=== PATIENT | male | born 1945 | race Caucasian/White ===

== ENCOUNTER 2020-08-31 16:21 | Emergency (ER) | payer OTHER, MEDICARE ==
[~2020-08-31] VITALS: Ht 180.3 cm; Wt 75.9 kg
[~2020-08-31 16:21] MED LIST: ASPI-611 PO; CYAN500T71 PO; DULO20CA50 PO; EMPA10TA PO; FOLI0.4T6 PO; GABA600T13 PO; INSU100V12 SQ; INSU100V13 SQ; LISI-790 PO; SIMV10TA2 PO
[2020-08-31] MEDS ORDERED: normal saline 1000ML IV soln IVB ONE (16:40)
[2020-08-31 17:07] LABS: BASOPHILS # (AUTO) 0.1 X10'3 (0-0.2); BASOPHILS % (AUTO) 0.8 % (0-1); EOSINOPHILS # (AUTO) 0.1 X10'3 (0-0.9); EOSINOPHILS % (AUTO) 1.1 % (0-6); HEMATOCRIT 45.3 % (42.0-52.0); HEMOGLOBIN 15.7 g/dl (14.0-17.9); LYMPHOCYTES # (AUTO) 1.1 X10'3 (1.1-4.8); LYMPHOCYTES % (AUTO) 13.1 % (21-51); MEAN CORPUSCULAR HEMOGLOBIN 33.3 PG (27.0-31.0); MEAN CORPUSCULAR HGB CONC 34.7 g/dL (33.0-36.5); MEAN PLATELET VOLUME 8.1 FL (7.4-10.4); MONOCYTES # (AUTO) 0.6 X10'3 (0-0.9); MONOCYTES % (AUTO) 6.9 % (2-12); NEUTROPHILS # (AUTO) 6.6 X10'3 (1.8-7.7); NEUTROPHILS % (AUTO) 78.1 % (42-75); PLATELET COUNT 292 X10'3 (140-440); RED BLOOD COUNT 4.71 X10'6 (4.70-6.10); RED CELL DISTRIBUTION WIDTH 14.3 % (11.5-14.5); WHITE BLOOD COUNT 8.4 X10'3 (4.5-11.0)
[2020-08-31 17:23] LABS: ALANINE AMINOTRANSFERASE 31 U/L (12-78); ALBUMIN 3.3 G/DL (3.4-5.0); ALBUMIN/GLOBULIN RATIO 0.9 (1.1-1.5); ALKALINE PHOSPHATASE 84 IU/L (46-116); ANION GAP 10 (8-16); ASPARTATE AMINO TRANSFERASE 22 U/L (10-37); BILIRUBIN,TOTAL 0.8 MG/DL (0.1-1.0); BLOOD UREA NITROGEN 12 MG/DL (7-18); BUN/CREATININE RATIO 12.2 (5.4-32.0); CALCIUM 8.7 MG/DL (8.5-10.1); CHLORIDE 106 MMOL/L (99-107); CREATININE 0.98 MG/DL (0.60-1.10); GLUCOSE 158 MG/DL (70-104); POTASSIUM 3.8 MMOL/L (3.5-5.1); SODIUM 141 MMOL/L (135-145); TOTAL CARBON DIOXIDE 25.5 MMOL/L (24-32); eGFR 75 ML/MIN
[2020-08-31 17:28] LABS: MAGNESIUM 1.6 MG/DL (1.5-2.4)
[2020-08-31 20:40] LABS: COLOR,URINE YELLOW (Yellow); GLUCOSE, URINE NEGATIVE (Neg); KETONES,URINE NEGATIVE (Neg); LEUKOCYTE ESTERASE ,URINE NEGATIVE (Neg); NITRITES, URINE NEGATIVE (Neg); OCCULT BLOOD,URINE SMALL (Neg); PROTEIN,URINE 100 mg/dl (Neg); UROBILINOGEN,URINE 0.2 E.U/dL (0.2-1.0)
[2020-08-31 21:05] LABS: CLARITY,URINE SLIGHTLY CLOUDY (Clear); UA COLLECTION TYPE CLN CATCH MIDSTREAM
[2020-08-31 21:12] VITALS: BP 184/85
[2020-08-31 21:15] LABS: BACTERIA,URINE FEW /HPF (Neg); RBC,URINE 0-2 /HPF (0-2); RENAL CELLS, URINE FEW /HPF; SQUAMOUS EPITHELIAL CELL,UR FEW /LPF (FEW); TRANSITIONAL EPI CELLS,URINE FEW /HPF; WBC CLUMPS,URINE FEW /HPF (NEGATIVE)
[2020-08-31] MEDS ORDERED: CEPH250T PO (21:22)
[2020-09-02] MEDS ORDERED: CEPH250C PO (11:47)
[2020-09-02] MEDS ORDERED: LORA10TA7 PO (12:57)
[2020-09-02] MEDS ORDERED: CHOL20004 PO (12:57)
[2020-09-02] MEDS ORDERED: TRAM50TA2 PO (12:57)
[2020-09-02] MEDS ORDERED: PREG150C PO (12:57)
[2020-09-02] MEDS ORDERED: FLO0.4C PO (12:57)
[2020-09-02] MEDS ORDERED: OMEP-50 PO (12:57)
[2020-09-02] MEDS ORDERED: MULT-384 PO (12:57)
[2020-09-02] MEDS ORDERED: ASPI-803 PO (12:57)
[2020-09-02] MEDS ORDERED: ROSU10TA2 PO (12:57)
[2020-09-02] MEDS ORDERED: ALBU8.5H8 IH (12:57)
[2020-09-02] MEDS ORDERED: ASCO-134 PO (12:57)
[2020-09-04] MEDS ORDERED: INSU100V12 SQ (09:23)
[2020-09-04] MEDS ORDERED: TRAM50TA2 PO (09:23)
[2020-09-04] MEDS ORDERED: DULO20CA50 PO (09:23)
== END 2020-08-31 23:50 | disposition home or self-care (01) ==
LOC: ER 16:22
DX: Z02.89 Encounter for other administrative examinations (principal); N39.0 Urinary tract infection, site not specified; R41.0 Disorientation, unspecified; R35.0 Frequency of micturition; E11.42 Type 2 diabetes mellitus with diabetic polyneuropathy; I25.10 Atherosclerotic heart disease of native coronary artery without angina pectoris; E78.00 Pure hypercholesterolemia, unspecified; I10 Essential (primary) hypertension; M19.90 Unspecified osteoarthritis, unspecified site; F32.9 Major depressive disorder, single episode, unspecified; F17.200 Nicotine dependence, unspecified, uncomplicated; Z79.82 Long term (current) use of aspirin; Z79.2 Long term (current) use of antibiotics; Z79.4 Long term (current) use of insulin; Z79.899 Other long term (current) drug therapy
CPT/HCPCS: 36415; 71045; 80053; 81001; 83735; 83880; 84484; 85025; 87088; 93005; 96360; 99285; J7030

== ENCOUNTER 2020-10-13 14:49 | Emergency (ER) | payer OTHER, MEDICARE ==
[~2020-10-13] VITALS: Ht 180.3 cm; Wt 75.9 kg
[~2020-10-13 14:49] MED LIST changes: +ALBU8.5H17 IH; +ASCO-134 PO; +CHOL20004 PO; -EMPA10TA PO; +FLO0.4C PO; -FOLI0.4T6 PO; -GABA600T13 PO; -INSU100V13 SQ; +LORA10TA7 PO; +MULT-384 PO; +OMEP-50 PO; +PREG150C PO; +ROSU10TA2 PO; -SIMV10TA2 PO; +TRAM50TA2 PO
[2020-10-13] MEDS ORDERED: normal saline 1000ml 1,000 ML IV ONE (16:05)
[2020-10-13 16:38] LABS: CLARITY,URINE CLEAR (Clear); COLOR,URINE STRAW (Yellow); GLUCOSE, URINE 250 mg/dl (Neg); KETONES,URINE 15 mg/dl (Neg); LEUKOCYTE ESTERASE ,URINE NEGATIVE (Neg); NITRITES, URINE NEGATIVE (Neg); OCCULT BLOOD,URINE SMALL (Neg); PROTEIN,URINE 100 mg/dl (Neg); UROBILINOGEN,URINE 0.2 E.U/dL (0.2-1.0)
[2020-10-13 16:41] VITALS: BP 139/74
[2020-10-13 16:42] LABS: BASOPHILS # (AUTO) 0.1 X10'3 (0-0.2); BASOPHILS % (AUTO) 1.1 % (0-1); EOSINOPHILS % (AUTO) 0.5 % (0-6); HEMOGLOBIN 14.4 g/dl (14.0-17.9); LYMPHOCYTES % (AUTO) 12.7 % (21-51); MEAN CORPUSCULAR HGB CONC 34.2 g/dL (33.0-36.5); MEAN CORPUSCULAR VOLUME 96.3 FL (78-98); MEAN PLATELET VOLUME 8.2 FL (7.4-10.4); MONOCYTES # (AUTO) 0.5 X10'3 (0-0.9); MONOCYTES % (AUTO) 5.6 % (2-12); NEUTROPHILS # (AUTO) 6.5 X10'3 (1.8-7.7); NEUTROPHILS % (AUTO) 80.1 % (42-75); PLATELET COUNT 457 X10'3 (140-440); RED BLOOD COUNT 4.36 X10'6 (4.70-6.10); RED CELL DISTRIBUTION WIDTH 14.5 % (11.5-14.5); WHITE BLOOD COUNT 8.1 X10'3 (4.5-11.0)
[2020-10-13 16:45] LABS: UA COLLECTION TYPE NON-SPECIFIED
[2020-10-13 16:48] LABS: BACTERIA,URINE NONE SEEN /HPF (Neg); RBC,URINE 0-2 /HPF (0-2); SQUAMOUS EPITHELIAL CELL,UR FEW /LPF (FEW); WBC,URINE 0-4 /HPF (0-4)
[2020-10-13 16:49] LABS: HYALINE CASTS 0-3 /LPF (NEGATIVE)
[2020-10-13 16:53] LABS: ALANINE AMINOTRANSFERASE 26 U/L (12-78); ALBUMIN 3.3 G/DL (3.4-5.0); ALBUMIN/GLOBULIN RATIO 0.8 (1.1-1.5); ALKALINE PHOSPHATASE 93 IU/L (46-116); ANION GAP 11 (8-16); ASPARTATE AMINO TRANSFERASE 23 U/L (10-37); BILIRUBIN,TOTAL 0.6 MG/DL (0.1-1.0); BLOOD UREA NITROGEN 12 MG/DL (7-18); BUN/CREATININE RATIO 12.5 (5.4-32.0); CALCIUM 8.5 MG/DL (8.5-10.1); CHLORIDE 104 MMOL/L (99-107); CREATININE 0.96 MG/DL (0.60-1.10); GLUCOSE 286 MG/DL (70-104); LIPASE 61 U/L (73-393); SODIUM 142 MMOL/L (135-145); TOTAL CARBON DIOXIDE 27.1 MMOL/L (24-32); TOTAL PROTEIN 7.3 G/DL (6.4-8.2); eGFR 77 ML/MIN
[2020-10-13 16:55] LABS: POTASSIUM 4.4 MMOL/L (3.5-5.1)
== END 2020-10-13 17:21 | disposition home or self-care (01) ==
LOC: ER 14:50
DX: E86.0 Dehydration (principal); E11.65 Type 2 diabetes mellitus with hyperglycemia; I25.10 Atherosclerotic heart disease of native coronary artery without angina pectoris; E78.00 Pure hypercholesterolemia, unspecified; E11.43 Type 2 diabetes mellitus with diabetic autonomic (poly)neuropathy; I10 Essential (primary) hypertension; E11.9 Type 2 diabetes mellitus without complications; M19.90 Unspecified osteoarthritis, unspecified site; Z79.899 Other long term (current) drug therapy; Z79.82 Long term (current) use of aspirin; Z79.4 Long term (current) use of insulin
CPT/HCPCS: 36415; 80053; 81001; 82948; 83690; 85025; 93005; 96360; 99284; J7030

== ENCOUNTER 2020-10-14 10:42 | Emergency (ER) | payer OTHER, MEDICARE ==
[~2020-10-14] VITALS: Ht 180.3 cm; Wt 70.9 kg
[2020-10-14 11:48] LABS: BASOPHILS % (AUTO) 0.5 % (0-1); EOSINOPHILS % (AUTO) 0.4 % (0-6); HEMATOCRIT 41.6 % (42.0-52.0); HEMOGLOBIN 14.2 g/dl (14.0-17.9); LYMPHOCYTES # (AUTO) 0.9 X10'3 (1.1-4.8); LYMPHOCYTES % (AUTO) 11.9 % (21-51); MEAN CORPUSCULAR HEMOGLOBIN 33.4 PG (27.0-31.0); MEAN CORPUSCULAR HGB CONC 34.2 g/dL (33.0-36.5); MEAN CORPUSCULAR VOLUME 97.7 FL (78-98); MEAN PLATELET VOLUME 7.7 FL (7.4-10.4); MONOCYTES # (AUTO) 0.5 X10'3 (0-0.9); MONOCYTES % (AUTO) 6.7 % (2-12); NEUTROPHILS # (AUTO) 6.4 X10'3 (1.8-7.7); NEUTROPHILS % (AUTO) 80.5 % (42-75); PLATELET COUNT 441 X10'3 (140-440); RED BLOOD COUNT 4.25 X10'6 (4.70-6.10); RED CELL DISTRIBUTION WIDTH 14.7 % (11.5-14.5)
[2020-10-14 12:04] LABS: ALANINE AMINOTRANSFERASE 22 U/L (12-78); ALBUMIN 3.3 G/DL (3.4-5.0); ALBUMIN/GLOBULIN RATIO 0.9 (1.1-1.5); ALKALINE PHOSPHATASE 88 IU/L (46-116); ANION GAP 9 (8-16); ASPARTATE AMINO TRANSFERASE 19 U/L (10-37); BILIRUBIN,TOTAL 0.8 MG/DL (0.1-1.0); BLOOD UREA NITROGEN 10 MG/DL (7-18); BUN/CREATININE RATIO 9.7 (5.4-32.0); CALCIUM 8.5 MG/DL (8.5-10.1); CHLORIDE 104 MMOL/L (99-107); CREATININE 1.03 MG/DL (0.60-1.10); GLUCOSE 284 MG/DL (70-104); MAGNESIUM 1.4 MG/DL (1.5-2.4); POTASSIUM 4.2 MMOL/L (3.5-5.1); SODIUM 140 MMOL/L (135-145); TOTAL PROTEIN 6.9 G/DL (6.4-8.2); eGFR 71 ML/MIN
--- NOTE | 2020-10-14 14:41 | NUR ---
PT SEEN AND DC'D BY PROVIDER
== END 2020-10-14 14:40 | disposition home or self-care (01) ==
LOC: ER 10:42
DX: R19.7 Diarrhea, unspecified (principal); I25.10 Atherosclerotic heart disease of native coronary artery without angina pectoris; E78.00 Pure hypercholesterolemia, unspecified; I10 Essential (primary) hypertension; E11.42 Type 2 diabetes mellitus with diabetic polyneuropathy; M19.90 Unspecified osteoarthritis, unspecified site; F32.9 Major depressive disorder, single episode, unspecified; Z79.82 Long term (current) use of aspirin; Z79.899 Other long term (current) drug therapy
CPT/HCPCS: 36415; 80053; 82948; 83735; 85025; 99283

== ENCOUNTER 2023-02-01 06:22 | Inpatient (IN) | payer OTHER, MEDICARE ==
[~2023-02-01] VITALS: Ht 180.3 cm; Wt 58.0 kg
[~2023-02-01 06:22] MED LIST changes: -LISI-790 PO; +LISI5TAB22 PO; -OMEP-50 PO; +OMEP20CA16 PO
[2023-02-01 08:21] LABS: EOSINOPHILS # (AUTO) 0.2 X10'3 (0-0.9); HEMOGLOBIN 10.7 g/dl (14.0-17.9); MONOCYTES # (AUTO) 0.4 X10'3 (0-0.9); WHITE BLOOD COUNT 6.1 X10'3 (4.5-11.0)
[2023-02-01 08:23] LABS: BASOPHILS # (AUTO) 0.1 X10'3 (0-0.2); BASOPHILS % (AUTO) 2.4 % (0-1); EOSINOPHILS % (AUTO) 3.3 % (0-6); HEMATOCRIT 32.8 % (42.0-52.0); LYMPHOCYTES # (AUTO) 1.3 X10'3 (1.1-4.8); MEAN CORPUSCULAR HGB CONC 32.7 g/dL (33.0-36.5); MEAN CORPUSCULAR VOLUME 79.4 FL (78-98); MONOCYTES % (AUTO) 6.2 % (2-12); NEUTROPHILS # (AUTO) 4.1 X10'3 (1.8-7.7); NEUTROPHILS % (AUTO) 67.1 % (42-75); PLATELET COUNT 388 X10'3 (140-440); RED BLOOD COUNT 4.13 X10'6 (4.70-6.10); RED CELL DISTRIBUTION WIDTH 23.7 % (11.5-14.5)
[2023-02-01 08:30] LABS: ANISOCYTOSIS 3+; MICROCYTOSIS 1+; PLATELET ESTIMATE NORMAL; TOTAL CELLS COUNTED 100
[2023-02-01 08:45] LABS: ABG BASE EXCESS -0.1 mmol/L (-2.0-2.0); ABG HCO3 22.5 mmol/L (22.0-26.0); ABG OXYGEN SATURATION 94.9 % (94-97); ABG PCO2 (T) 29.6 mmHg (35.0-48.0); ABG PH (T) 7.497 (7.340-7.440); ABG PO2 (T) 72.1 mmHg (75.0-100.0); ALLEN'S TEST POSITIVE; FCOHb 0.3 % (0.0-3.9); FHHb 5.1 % (0.0-5.0); FLOW 0 L/min; FMetHb 0.3 % (0.0-1.5); FO2Hb 94.3 % (94-97); MODE ROOM AIR; PATIENT TEMPERATURE 36.6; TOTAL HEMOGLOBIN 11.7 G/dl (14.0-17.9)
[2023-02-01 09:34] LABS: ALANINE AMINOTRANSFERASE 35 U/L (12-78); ALBUMIN 2.5 G/DL (3.4-5.0); ALBUMIN/GLOBULIN RATIO 0.7 (1.1-1.5); ALKALINE PHOSPHATASE 89 IU/L (46-116); ANION GAP 7 (8-16); ASPARTATE AMINO TRANSFERASE 17 U/L (10-37); BILIRUBIN,TOTAL 0.4 MG/DL (0.1-1.0); BLOOD UREA NITROGEN 25 MG/DL (7-18); BUN/CREATININE RATIO 25.3 (10.0-20.0); CALCIUM 8.6 MG/DL (8.5-10.1); CHLORIDE 103 MMOL/L (99-107); CREATININE 0.99 MG/DL (0.60-1.10); GLUCOSE 136 MG/DL (70-104); POTASSIUM 3.7 MMOL/L (3.5-5.1); SODIUM 137 MMOL/L (135-145); TOTAL CARBON DIOXIDE 26.8 MMOL/L (24-32); eCRCL 52 ML/MIN; eGFR 73 ML/MIN
[2023-02-01 09:42] LABS: MAGNESIUM 1.3 MG/DL (1.5-2.4); PRO BRAIN NATRIURETIC PEPTIDE 1797 PG/ML (0-450)
[2023-02-01 10:02] LABS: ACETONE NEGATIVE (NEGATIVE)
[2023-02-01 11:08] LABS: BILIRUBIN,URINE NEGATIVE (Neg); CLARITY,URINE CLEAR (Clear); COLOR,URINE STRAW (Yellow); GLUCOSE, URINE >=1000 mg/dl (Neg); KETONES,URINE NEGATIVE (Neg); LEUKOCYTE ESTERASE ,URINE NEGATIVE (Neg); NITRITES, URINE NEGATIVE (Neg); OCCULT BLOOD,URINE NEGATIVE (Neg); PROTEIN,URINE NEGATIVE (Neg); UROBILINOGEN,URINE 0.2 E.U/dL (0.2-1.0)
[2023-02-01] MEDS ORDERED: acetaminophen 325mg tablet PO PRN (11:15)
[2023-02-01] MEDS ORDERED: magnesium 4gm in 100ml NS 100 ML IV PRN (11:15)
[2023-02-01] MEDS ORDERED: magnesium 2GM in 50ml NS 50 ML IV PRN (11:15)
[2023-02-01] MEDS ORDERED: magnesium Cl slow-release 64mg tablet PO PRN (11:15)
[2023-02-01] MEDS ORDERED: potassium Cl 20 mEq SR tablet PO PRN ×2 (11:15)
[2023-02-01] MEDS ORDERED: ondansetron/PF 4mg/2ml inj IV PRN (11:15)
[2023-02-01] MEDS ORDERED: potassium Cl 40MEQ/1/2NS 520ml 520 ML IV PRN (11:15)
[2023-02-01 11:36] LABS: UA COLLECTION TYPE CLN CATCH MIDSTREAM
[2023-02-01 11:39] LABS: SQUAMOUS EPITHELIAL CELL,UR FEW /LPF (FEW)
[2023-02-01 11:40] LABS: BACTERIA,URINE NONE SEEN /HPF (Neg); RBC,URINE 0-2 /HPF (0-2); WBC,URINE 0-4 /HPF (0-4)
[2023-02-01] MEDS: normal saline 1000ml 1,000 ML IV SCH ×2 (11:49→21:15)
[2023-02-01] MEDS ORDERED: DULO20CA50 PO (14:55)
[2023-02-01] MEDS ORDERED: INSU100V12 SQ (14:55)
[2023-02-01] MEDS ORDERED: TRAM50TA2 PO (14:55)
[2023-02-01 15:34] VITALS: RESP 16; O2SAT 97
[2023-02-01 15:47] VITALS: BP 138/70; PULSE 73; RESP 16; TEMP 97.5; O2SAT 97
[2023-02-01 17:45] LABS: HEMOGLOBIN A1C 8.3 % (4.5-6.2)
[2023-02-01 18:00] VITALS: BP 132/69; PULSE 65; RESP 16; TEMP 97.4; O2SAT 96
[2023-02-01] MEDS ORDERED: glucagon, human recombinant 1mg kit SUBCUT PRN (18:25)
[2023-02-01] MEDS ORDERED: PERFLUTREN PROTEIN-A MICROSPHR (Optison) 0.22 MG/ML 3ML VIAL IV ONE (18:25)
[2023-02-01] MEDS ORDERED: MESSAGE TO PHARMACY PO ONE (18:25)
[2023-02-01] MEDS ORDERED: dextrose 50%-water 50ml dispensing syringe IV PRN ×2 (18:25)
[2023-02-01] MEDS ORDERED: DEXTROSE 15 GM of carb/4 tabs (each vial/BOTTLE has 4 tablets) PO PRN ×2 (18:25)
[2023-02-01 20:20] VITALS: RESP 16; O2SAT 96
[2023-02-01] MEDS: heparin, porcine 5000 units/ml vial SQ SCH (20:25)
[2023-02-01] MEDS: K and/or MAG REPLACEMENT MC SCH (20:26)
[2023-02-01] MEDS: insulin glargine (Lantus) pen - multi-dose SQ SCH (21:00)
[2023-02-01 22:00] VITALS: BP 132/55; PULSE 84; RESP 16; TEMP 98.4; O2SAT 95
[2023-02-02 06:34] VITALS: BP 124/61; PULSE 82; RESP 14; TEMP 97.1; O2SAT 97
[2023-02-02] MEDS: normal saline 1000ml 1,000 ML IV SCH ×3 (07:15→22:09)
[2023-02-02 08:00] VITALS: RESP 18; O2SAT 96
[2023-02-02] MEDS: K and/or MAG REPLACEMENT MC SCH ×2 (08:00→20:01)
[2023-02-02] MEDS: heparin, porcine 5000 units/ml vial SQ SCH ×2 (08:03→19:35)
[2023-02-02 08:42] LABS: BASOPHILS # (AUTO) 0.1 X10'3 (0-0.2); EOSINOPHILS # (AUTO) 0.1 X10'3 (0-0.9); LYMPHOCYTES # (AUTO) 1.2 X10'3 (1.1-4.8); LYMPHOCYTES % (AUTO) 20.1 % (21-51); MONOCYTES # (AUTO) 0.5 X10'3 (0-0.9); NEUTROPHILS # (AUTO) 3.9 X10'3 (1.8-7.7); RED BLOOD COUNT 4.65 X10'6 (4.70-6.10)
[2023-02-02 08:44] LABS: BASOPHILS % (AUTO) 1.5 % (0-1); HEMATOCRIT 37.9 % (42.0-52.0); MEAN CORPUSCULAR HEMOGLOBIN 25.9 PG (27.0-31.0); MEAN CORPUSCULAR HGB CONC 31.8 g/dL (33.0-36.5); MEAN CORPUSCULAR VOLUME 81.6 FL (78-98); MEAN PLATELET VOLUME 7.8 FL (7.4-10.4); MONOCYTES % (AUTO) 8.5 % (2-12); NEUTROPHILS % (AUTO) 67.9 % (42-75); PLATELET COUNT 375 X10'3 (140-440); RED CELL DISTRIBUTION WIDTH 24.5 % (11.5-14.5); WHITE BLOOD COUNT 5.7 X10'3 (4.5-11.0)
[2023-02-02 08:58] LABS: ALBUMIN 2.9 G/DL (3.4-5.0); ANION GAP 10 (8-16); BLOOD UREA NITROGEN 17 MG/DL (7-18); BUN/CREATININE RATIO 19.1 (10.0-20.0); CHLORIDE 104 MMOL/L (99-107); CREATININE 0.89 MG/DL (0.60-1.10); GLUCOSE 211 MG/DL (70-104); POTASSIUM 3.9 MMOL/L (3.5-5.1); SODIUM 138 MMOL/L (135-145); eCRCL 58 ML/MIN; eGFR 83 ML/MIN
[2023-02-02] MEDS: insulin Lispro (HumaLOG) vial - multi-dose SQ SCH ×3 (14:30→22:03)
[2023-02-02] MEDS: lactose-reduced food (Ensure Enlive) - 237ml bottle PO SCH (18:00)
[2023-02-02 22:00] VITALS: BP 147/73; PULSE 79; RESP 79; TEMP 97.9; O2SAT 95
[2023-02-02] MEDS: insulin glargine (Lantus) pen - multi-dose SQ SCH (22:02)
[2023-02-03 06:00] VITALS: BP 137/59; PULSE 63; RESP 18; TEMP 98; O2SAT 94
[2023-02-03 06:41] LABS: BASOPHILS # (AUTO) 0.1 X10'3 (0-0.2); BASOPHILS % (AUTO) 1.3 % (0-1); EOSINOPHILS # (AUTO) 0.1 X10'3 (0-0.9); EOSINOPHILS % (AUTO) 2.5 % (0-6); HEMATOCRIT 34.8 % (42.0-52.0); HEMOGLOBIN 11.4 g/dl (14.0-17.9); LYMPHOCYTES # (AUTO) 1.3 X10'3 (1.1-4.8); LYMPHOCYTES % (AUTO) 24.5 % (21-51); MEAN CORPUSCULAR HGB CONC 32.7 g/dL (33.0-36.5); MEAN CORPUSCULAR VOLUME 79.6 FL (78-98); MEAN PLATELET VOLUME 7.7 FL (7.4-10.4); MONOCYTES # (AUTO) 0.5 X10'3 (0-0.9); MONOCYTES % (AUTO) 9.5 % (2-12); NEUTROPHILS # (AUTO) 3.3 X10'3 (1.8-7.7); NEUTROPHILS % (AUTO) 62.2 % (42-75); PLATELET COUNT 378 X10'3 (140-440); RED BLOOD COUNT 4.37 X10'6 (4.70-6.10); RED CELL DISTRIBUTION WIDTH 23.1 % (11.5-14.5); WHITE BLOOD COUNT 5.3 X10'3 (4.5-11.0)
[2023-02-03 07:20] LABS: ALBUMIN 2.7 G/DL (3.4-5.0); ANION GAP 9 (8-16); BLOOD UREA NITROGEN 15 MG/DL (7-18); BUN/CREATININE RATIO 16.9 (10.0-20.0); CALCIUM 8.4 MG/DL (8.5-10.1); CHLORIDE 105 MMOL/L (99-107); CREATININE 0.89 MG/DL (0.60-1.10); GLUCOSE 163 MG/DL (70-104); POTASSIUM 3.7 MMOL/L (3.5-5.1); SODIUM 140 MMOL/L (135-145); THYROID STIMULATING HORMONE 2.19 ulU/ml (0.34-4.50); TOTAL CARBON DIOXIDE 26.3 MMOL/L (24-32); eCRCL 58 ML/MIN; eGFR 83 ML/MIN
[2023-02-03 07:26] LABS: % IRON SATURATION 13 % (11-46); IRON 38 UG/DL (53-167); TOTAL IRON BINDING CAPACITY 291 UG/DL (259-388)
[2023-02-03] MEDS: lactose-reduced food (Ensure Enlive) - 237ml bottle PO SCH ×3 (08:00→18:11)
[2023-02-03] MEDS: K and/or MAG REPLACEMENT MC SCH ×2 (08:00→20:00)
[2023-02-03 08:35] LABS: ACANTHOCYTES FEW; ANISOCYTOSIS 3+; BURR CELLS FEW; MICROCYTOSIS 1+; PLATELET ESTIMATE NORMAL; TEAR DROP CELLS 1+
[2023-02-03 08:40] LABS: ELLIPTOCYTES FEW
[2023-02-03] MEDS: heparin, porcine 5000 units/ml vial SQ SCH ×2 (09:36→19:25)
[2023-02-03 10:00] VITALS: BP 124/50; PULSE 80; RESP 13; TEMP 98.1; O2SAT 96
[2023-02-03] MEDS: normal saline 1000ml 1,000 ML IV SCH ×2 (13:15→19:24)
[2023-02-03] MEDS ORDERED: iohexol 300mg/ml 100ml inj. ONE (13:38)
[2023-02-03] MEDS: insulin Lispro (HumaLOG) vial - multi-dose SQ SCH ×3 (14:09→21:21)
[2023-02-03] MEDS ORDERED: albuterol 2.5 MG/3 ML nebule NEB PRN (17:05)
[2023-02-03] MEDS ORDERED: traMADol 50MG tablet PO PRN (17:05)
[2023-02-03] MEDS ORDERED: LORazepam 0.5 MG tablet PO PRN (17:10)
[2023-02-03] MEDS ORDERED: ferrous gluconate 324mg tablet PO SCH (17:30)
[2023-02-03 18:00] VITALS: BP 134/53; PULSE 73; RESP 17; TEMP 97.9; O2SAT 96
[2023-02-03] MEDS: ascorbic acid 500mg tablet PO SCH (18:05)
[2023-02-03] MEDS: pregabalin 75mg capsule PO SCH (19:25)
[2023-02-03 20:00] VITALS: RESP 17; O2SAT 96
[2023-02-03] MEDS ORDERED: INSULIN DETEMIR 10 UNIT SQ SCH (21:00)
[2023-02-03] MEDS: insulin glargine (Lantus) pen - multi-dose SQ SCH (21:20)
[2023-02-03 22:00] VITALS: BP 104/62; PULSE 81; RESP 16; TEMP 98.1; O2SAT 97
[2023-02-04] MEDS: normal saline 1000ml 1,000 ML IV SCH ×2 (05:47→19:15)
[2023-02-04 06:41] VITALS: BP 141/69; PULSE 73; RESP 16; O2SAT 97
[2023-02-04 06:55] LABS: BASOPHILS # (AUTO) 0.1 X10'3 (0-0.2); BASOPHILS % (AUTO) 1.8 % (0-1); EOSINOPHILS # (AUTO) 0.2 X10'3 (0-0.9); EOSINOPHILS % (AUTO) 3.3 % (0-6); HEMOGLOBIN 12.1 g/dl (14.0-17.9); LYMPHOCYTES # (AUTO) 1.4 X10'3 (1.1-4.8); LYMPHOCYTES % (AUTO) 26.5 % (21-51); MEAN CORPUSCULAR HEMOGLOBIN 26.1 PG (27.0-31.0); MEAN CORPUSCULAR HGB CONC 32.8 g/dL (33.0-36.5); MEAN CORPUSCULAR VOLUME 79.4 FL (78-98); MEAN PLATELET VOLUME 8.2 FL (7.4-10.4); MONOCYTES # (AUTO) 0.5 X10'3 (0-0.9); MONOCYTES % (AUTO) 9.3 % (2-12); NEUTROPHILS # (AUTO) 3.2 X10'3 (1.8-7.7); NEUTROPHILS % (AUTO) 59.1 % (42-75); PLATELET COUNT 383 X10'3 (140-440); RED BLOOD COUNT 4.65 X10'6 (4.70-6.10); RED CELL DISTRIBUTION WIDTH 23.7 % (11.5-14.5); WHITE BLOOD COUNT 5.4 X10'3 (4.5-11.0)
[2023-02-04 07:01] LABS: ALBUMIN 2.6 G/DL (3.4-5.0); ANION GAP 9 (8-16); BLOOD UREA NITROGEN 14 MG/DL (7-18); BUN/CREATININE RATIO 16.9 (10.0-20.0); CALCIUM 8.7 MG/DL (8.5-10.1); CHLORIDE 107 MMOL/L (99-107); CREATININE 0.83 MG/DL (0.60-1.10); GLUCOSE 92 MG/DL (70-104); POTASSIUM 3.7 MMOL/L (3.5-5.1); SODIUM 142 MMOL/L (135-145); TOTAL CARBON DIOXIDE 26.2 MMOL/L (24-32); eCRCL 62 ML/MIN; eGFR 90 ML/MIN
[2023-02-04] MEDS: cyanocobalamin 500mcg tablet PO SCH (07:49)
[2023-02-04] MEDS: aspirin 81mg, enteric-coated 1 TAB TABLET.DR PO SCH (07:49)
[2023-02-04] MEDS: pregabalin 75mg capsule PO SCH ×2 (07:49→19:15)
[2023-02-04] MEDS: loratadine 10mg tablet PO SCH (07:50)
[2023-02-04] MEDS: pantoprazole 40mg Tablet.DR PO SCH (07:50)
[2023-02-04] MEDS: cholecalciferol (vitamin D3) 1,000 unit (25mcg) tablet PO SCH (07:50)
[2023-02-04] MEDS: ferrous gluconate 324mg tablet PO SCH ×3 (07:50→17:47)
[2023-02-04] MEDS: multivitamins, therapeutics tablet PO SCH (07:50)
[2023-02-04] MEDS: ascorbic acid 500mg tablet PO SCH ×3 (07:50→17:47)
[2023-02-04] MEDS: heparin, porcine 5000 units/ml vial SQ SCH ×2 (07:51→19:15)
[2023-02-04] MEDS: lisinopril 5mg tablet PO SCH (07:51)
[2023-02-04] MEDS: lactose-reduced food (Ensure Enlive) - 237ml bottle PO SCH ×3 (07:52→17:48)
[2023-02-04] MEDS: tamsulosin 0.4mg capsule PO SCH (07:52)
[2023-02-04] MEDS: duloxetine 20mg capsule.DR PO SCH (07:55)
[2023-02-04] MEDS: K and/or MAG REPLACEMENT MC SCH ×2 (07:57→20:00)
[2023-02-04 08:00] VITALS: RESP 16; O2SAT 96
[2023-02-04 09:26] LABS: PSA, FREE 0.45 ng/mL
[2023-02-04 10:00] VITALS: BP 97/44; PULSE 82; RESP 14; RESP 16; TEMP 97.4; O2SAT 94
[2023-02-04] MEDS: insulin Lispro (HumaLOG) vial - multi-dose SQ SCH ×3 (10:01→19:20)
[2023-02-04 18:00] VITALS: BP 94/57; PULSE 88; RESP 15; TEMP 98.4; O2SAT 96
[2023-02-04 20:00] VITALS: RESP 20; O2SAT 93
[2023-02-04] MEDS: insulin glargine (Lantus) pen - multi-dose SQ SCH (21:00)
[2023-02-04 22:00] VITALS: BP 108/50; PULSE 83; RESP 16; TEMP 98.5; O2SAT 97
[2023-02-05] MEDS: normal saline 1000ml 1,000 ML IV SCH ×3 (01:35→23:48)
[2023-02-05 06:00] VITALS: BP 119/45; PULSE 77; RESP 16; TEMP 97.6; O2SAT 96
[2023-02-05 06:22] LABS: ALBUMIN 2.3 G/DL (3.4-5.0); ANION GAP 7 (8-16); BLOOD UREA NITROGEN 26 MG/DL (7-18); BUN/CREATININE RATIO 30.2 (10.0-20.0); CALCIUM 8.6 MG/DL (8.5-10.1); CHLORIDE 107 MMOL/L (99-107); CREATININE 0.86 MG/DL (0.60-1.10); GLUCOSE 164 MG/DL (70-104); SODIUM 140 MMOL/L (135-145); TOTAL CARBON DIOXIDE 25.6 MMOL/L (24-32); eCRCL 60 ML/MIN; eGFR 86 ML/MIN
[2023-02-05 06:35] LABS: BASOPHILS # (AUTO) 0.1 X10'3 (0-0.2); EOSINOPHILS # (AUTO) 0.2 X10'3 (0-0.9); MEAN PLATELET VOLUME 8.2 FL (7.4-10.4); MONOCYTES # (AUTO) 0.6 X10'3 (0-0.9); RED BLOOD COUNT 4.19 X10'6 (4.70-6.10)
[2023-02-05 06:37] LABS: BASOPHILS % (AUTO) 1.7 % (0-1); EOSINOPHILS % (AUTO) 3.8 % (0-6); HEMATOCRIT 33.5 % (42.0-52.0); HEMOGLOBIN 10.9 g/dl (14.0-17.9); LYMPHOCYTES # (AUTO) 1.5 X10'3 (1.1-4.8); LYMPHOCYTES % (AUTO) 25.9 % (21-51); MEAN CORPUSCULAR HEMOGLOBIN 26.1 PG (27.0-31.0); MEAN CORPUSCULAR HGB CONC 32.6 g/dL (33.0-36.5); MONOCYTES % (AUTO) 9.5 % (2-12); NEUTROPHILS # (AUTO) 3.4 X10'3 (1.8-7.7); NEUTROPHILS % (AUTO) 59.1 % (42-75); PLATELET COUNT 315 X10'3 (140-440); RED CELL DISTRIBUTION WIDTH 23.8 % (11.5-14.5); WHITE BLOOD COUNT 5.8 X10'3 (4.5-11.0)
[2023-02-05] MEDS: lactose-reduced food (Ensure Enlive) - 237ml bottle PO SCH ×5 (08:00→19:45)
[2023-02-05] MEDS: K and/or MAG REPLACEMENT MC SCH ×2 (09:30→20:00)
[2023-02-05 10:00] VITALS: BP 124/58; PULSE 77; RESP 14; TEMP 97.7; O2SAT 94
[2023-02-05] MEDS: ascorbic acid 500mg tablet PO SCH ×3 (12:30→17:58)
[2023-02-05] MEDS: ferrous gluconate 324mg tablet PO SCH ×3 (12:30→17:58)
[2023-02-05] MEDS: pantoprazole 40mg Tablet.DR PO SCH (12:41)
[2023-02-05] MEDS: lisinopril 5mg tablet PO SCH (12:41)
[2023-02-05] MEDS: cholecalciferol (vitamin D3) 1,000 unit (25mcg) tablet PO SCH (12:41)
[2023-02-05] MEDS: pregabalin 75mg capsule PO SCH ×2 (12:41→19:08)
[2023-02-05] MEDS: cyanocobalamin 500mcg tablet PO SCH (12:41)
[2023-02-05] MEDS: multivitamins, therapeutics tablet PO SCH (12:42)
[2023-02-05] MEDS: loratadine 10mg tablet PO SCH (12:42)
[2023-02-05] MEDS: tamsulosin 0.4mg capsule PO SCH (12:42)
[2023-02-05] MEDS: aspirin 81mg, enteric-coated 1 TAB TABLET.DR PO SCH (12:42)
[2023-02-05] MEDS: heparin, porcine 5000 units/ml vial SQ SCH ×2 (12:45→19:08)
[2023-02-05] MEDS: duloxetine 20mg capsule.DR PO SCH (12:54)
[2023-02-05] MEDS: insulin Lispro (HumaLOG) vial - multi-dose SQ SCH ×2 (13:22→19:04)
[2023-02-05 18:00] VITALS: BP 114/62; PULSE 80; RESP 16; TEMP 97.9; O2SAT 96
[2023-02-05 20:00] VITALS: RESP 16; O2SAT 97
[2023-02-05] MEDS: insulin glargine (Lantus) pen - multi-dose SQ SCH (21:59)
[2023-02-05 22:00] VITALS: BP 124/51; PULSE 67; RESP 16; TEMP 98.4; O2SAT 97
[2023-02-06 07:12] VITALS: BP 121/50; PULSE 71; RESP 14; TEMP 98.4; O2SAT 94
[2023-02-06 07:25] LABS: BASOPHILS # (AUTO) 0.1 X10'3 (0-0.2); BASOPHILS % (AUTO) 1.9 % (0-1); EOSINOPHILS # (AUTO) 0.3 X10'3 (0-0.9); EOSINOPHILS % (AUTO) 4.6 % (0-6); HEMATOCRIT 30.3 % (42.0-52.0); LYMPHOCYTES # (AUTO) 1.2 X10'3 (1.1-4.8); LYMPHOCYTES % (AUTO) 21.9 % (21-51); MEAN CORPUSCULAR HEMOGLOBIN 26.4 PG (27.0-31.0); MEAN CORPUSCULAR HGB CONC 33.1 g/dL (33.0-36.5); MEAN CORPUSCULAR VOLUME 79.9 FL (78-98); MEAN PLATELET VOLUME 8.1 FL (7.4-10.4); MONOCYTES # (AUTO) 0.5 X10'3 (0-0.9); MONOCYTES % (AUTO) 8.1 % (2-12); NEUTROPHILS # (AUTO) 3.6 X10'3 (1.8-7.7); NEUTROPHILS % (AUTO) 63.5 % (42-75); PLATELET COUNT 289 X10'3 (140-440); RED CELL DISTRIBUTION WIDTH 23.7 % (11.5-14.5); WHITE BLOOD COUNT 5.6 X10'3 (4.5-11.0)
[2023-02-06] MEDS: cholecalciferol (vitamin D3) 1,000 unit (25mcg) tablet PO SCH (07:25)
[2023-02-06] MEDS: pantoprazole 40mg Tablet.DR PO SCH (07:25)
[2023-02-06] MEDS: multivitamins, therapeutics tablet PO SCH (07:25)
[2023-02-06] MEDS: aspirin 81mg, enteric-coated 1 TAB TABLET.DR PO SCH (07:25)
[2023-02-06] MEDS: loratadine 10mg tablet PO SCH (07:25)
[2023-02-06] MEDS: pregabalin 75mg capsule PO SCH (07:26)
[2023-02-06] MEDS: tamsulosin 0.4mg capsule PO SCH (07:26)
[2023-02-06] MEDS: lisinopril 5mg tablet PO SCH (07:26)
[2023-02-06] MEDS: cyanocobalamin 500mcg tablet PO SCH (07:26)
[2023-02-06] MEDS: heparin, porcine 5000 units/ml vial SQ SCH (07:26)
[2023-02-06] MEDS: duloxetine 20mg capsule.DR PO SCH (07:26)
[2023-02-06 07:36] VITALS: RESP 14; O2SAT 94
[2023-02-06 07:51] LABS: ALBUMIN 2.3 G/DL (3.4-5.0); ANION GAP 10 (8-16); BLOOD UREA NITROGEN 22 MG/DL (7-18); BUN/CREATININE RATIO 27.8 (10.0-20.0); CALCIUM 8.5 MG/DL (8.5-10.1); CHLORIDE 106 MMOL/L (99-107); CREATININE 0.79 MG/DL (0.60-1.10); GLUCOSE 198 MG/DL (70-104); POTASSIUM 3.6 MMOL/L (3.5-5.1); SODIUM 141 MMOL/L (135-145); TOTAL CARBON DIOXIDE 25.3 MMOL/L (24-32); eCRCL 65 ML/MIN; eGFR > 90 ML/MIN
[2023-02-06] MEDS: K and/or MAG REPLACEMENT MC SCH (08:00)
[2023-02-06] MEDS: lactose-reduced food (Ensure Enlive) - 237ml bottle PO SCH ×2 (08:00→13:51)
[2023-02-06] MEDS: ferrous gluconate 324mg tablet PO SCH ×2 (09:32→13:51)
[2023-02-06] MEDS: ascorbic acid 500mg tablet PO SCH ×2 (09:32→13:51)
[2023-02-06] MEDS: insulin Lispro (HumaLOG) vial - multi-dose SQ SCH (09:37)
[2023-02-06] MEDS: normal saline 1000ml 1,000 ML IV SCH (11:15)
[2023-02-06 11:39] VITALS: BP 108/40; PULSE 70; RESP 15; TEMP 98.2; O2SAT 95
[2023-02-07 09:51] LABS: AFP,SERUM, TUMOR MARKER 2.1 ng/mL (0.0-8.4); CARCINOEMBRYONIC ANTIGEN 6.4 ng/mL (0.0-4.7)
== END 2023-02-06 15:25 | disposition home health service (06) | DRG 640 ==
LOC: ER 06:23 → ED HOLD 11:20 → ORTHO 4S 15:20
PROVIDERS: ADMIT Internal Medicine; ATTEND Internal Medicine
DX: E86.0 Dehydration (principal); E43 Unspecified severe protein-calorie malnutrition; Z68.1 Body mass index [BMI] 19.9 or less, adult; E83.42 Hypomagnesemia; R62.7 Adult failure to thrive; E11.42 Type 2 diabetes mellitus with diabetic polyneuropathy; E78.00 Pure hypercholesterolemia, unspecified; I10 Essential (primary) hypertension; I25.10 Atherosclerotic heart disease of native coronary artery without angina pectoris; J43.9 Emphysema, unspecified; K21.9 Gastro-esophageal reflux disease without esophagitis; N40.0 Benign prostatic hyperplasia without lower urinary tract symptoms; D50.9 Iron deficiency anemia, unspecified; Z20.822 Contact with and (suspected) exposure to COVID-19; F32.A Depression, unspecified; Z79.4 Long term (current) use of insulin; Z79.899 Other long term (current) drug therapy
CPT/HCPCS: 36415; 36600; 70551; 71045; 71260; 74177; 80048; 80053; 81001; 82009; 82103; 82378; 82803; 82948; 83036; 83540; 83550; 83735; 83880; 84132; 84153; 84154; 84443; 84484; 85007; 85008; 85018; 85025; 86301; 86304; 87081; 87502; 87503; 87811; 93306; 97116; 97161; 97530; 99285; A6258; G0378; J1644; J1815; J3490; J7030; Q9967